=== PATIENT | female | born 1985 | race Caucasian/White ===

== ENCOUNTER 2025-06-11 00:56 | Emergency (ER) | payer OTHER, SELFPAY ==
[2025-06-11 01:10] VITALS: BMI 25.0
--- NOTE | 2025-06-11 01:18 | PC.NURSE ---
PA at bedside now
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
--- OUTSIDE RECORDS SUMMARY | 2025-06-11 01:47 | XMS_ITS | Clinical Summary ---
Author Organization [facility] Address [address] [address] Phone Care Team Providers Care Mud Analysis Operator Name Role Phone Pcp, Unknown Primary Care Provider Unavailabl e Allergies No known active allergies Medications No known medications Social History Tobacco Use Types Packs/Day Years Used Date Smoking Tobacco: Never Smokeless Tobacco: Never Tobacco Cessation:Counseling Given: Not Answered Alcohol Use Standard Drinks/Week Comments Yes 0 (1 standard drink = 0.6 oz pur e alcohol) Education Answer Date Recorded Are you interested in more education? Not on wily e 04/07/2024 Are you concerned about learning? Not on file 04/07/2024 No 04/07/2024 No 04/07/2024 Digital Access Answer Date Recorded No 04/07/2024 No 04/07/2024 Reliable internet access at home? Not on file 04/07/2024 Device with a working camera? Not on file Intimate Partner Violence Answer Date R ecorded Are you denied basic needs s uch as food, clothing, or medical care? No 04/07/2024 In the past 12 months have y ou been in a relationship with a person who hurts, threatens, or tries to control you? No 04/07/2024 Are you denied basic needs s uch as food, clothing, or medical care? No 04/07/2024 In the past 12 months have y ou been in a relationship with a person who hurts, threatens, or tries to control you? No 04/07/2024 Comments Unknown Sex and Gender Information Value Date Recorded Sex Assigned at Female 04/07/2024 9:00 PM EDT Legal Sex Female 9:00 PM EDT Gender Identity Female 04/07/2024 9:00 PM EDT Sexual Orientation Straight 04/07/2024 9: 03 PM EDT Last Filed Vital Signs Vital Sign Reading Time Taken Comments Blood Pressure 126/88 04/07/2024 10:47 PM EDT Pulse 101 04/07/2024 10:47 PM EDT Temperature 36.6 C (97.9 F) 04/07/2024 10:47 PM EDT Respiratory Rate 20 04/07/2024 10:47 PM EDT Oxygen Saturation 98% 04/07/2024 10:47 PM EDT Inhaled Oxygen Concentration - - Weight 77.1 kg (170 lb) 04/07/2024 9:03 PM EDT Height 157.5 cm (5' 2 ) 04/07/2024 9:03 PM EDT Body Mass Index 31.09 04/07/2024 9:03 PM EDT Plan of Treatment Not on file Medical Devices Not on file Insurance POS POS POS POS HEALTHCARE POS Care Teams Mud Analysis Operator Relationship Specialty Start Date End Date Pcp, Unknown PCP - General 04/07/24 Additional Source Comments The information contained in this document represents components of the legal health record. It is not the complete legal health record.[facility]
[2025-06-11 02:05] VITALS: BP 0/0; PULSE 0; RESP 18; TEMP -17.7; TEMP 0; O2SAT 0
== END 2025-06-11 02:06 | disposition home or self-care (01) ==
PROVIDERS: Emergency Provider Emergency Medicine Emergency Medical Services
DX: Z04.1 Encounter for examination and observation following transport accident (principal)
CPT/HCPCS: 99283; 99284